=== PATIENT | male | born 1975 | race African-American/Black ===

== ENCOUNTER 2021-08-19 14:35 | Inpatient (IN) | payer BC ==
[2021-08-19 17:25] VITALS: BMI 27.5
[2021-08-19] MEDS ORDERED: guaiFENesin 200 MG/10 ML 10 ML UNIT-DOSE CUPS PO PRN (17:36)
[2021-08-19] MEDS ORDERED: P-EPHED 60MG/TRIPROLIDI 2.5MG TABLET PO PRN (17:36)
[2021-08-19] MEDS ORDERED: MAGNESIUM HYDROX 2400MG/30ML ORAL SUSPENSION 30 ML CUP PO PRN (17:36)
[2021-08-19] MEDS ORDERED: MAGNESIUM CITRATE 300 ML BOTTLE PO PRN (17:36)
[2021-08-19] MEDS ORDERED: MAG HYDROX/AL HYDROX/SIMETH 30 ML UNIT-DOSE CUP PO PRN (17:36)
[2021-08-19] MEDS ORDERED: IBUPROFEN 400 MG TABLET (FP) PO PRN (17:36)
[2021-08-19] MEDS ORDERED: LOPERAMIDE HCL 2 MG CAPSULE PO PRN (17:36)
[2021-08-19] MEDS ORDERED: ACETAMINOPHEN 325 MG TABLET (FP) PO PRN (17:36)
[2021-08-19] MEDS ORDERED: ALBUTEROL SO4 HFA INHALER IH PRN (20:12)
[2021-08-19] MEDS: hydrOXYzine PAMOATE 25 MG CAPSULE (FP) PO SCH ×2 (21:37→21:39)
[2021-08-19] MEDS: THIAMINE HCL 100 MG TABLET (FP) PO SCH (21:39)
[2021-08-19] MEDS: MELATONIN 5 MG TABLETS PO SCH (21:39)
[2021-08-20] MEDS: hydrOXYzine PAMOATE 25 MG CAPSULE (FP) PO SCH ×5 (06:43→21:15)
[2021-08-20] MEDS: PRENATAL VITAMINS W/ FOLIC ACID TABLET (FP) PO SCH (11:27)
[2021-08-20] MEDS: NICOTINE 7 MG/24 HOURS TOPICAL PATCH TD SCH (11:27)
[2021-08-20] MEDS: NICOTINE 10 MG CARTRIDGE (INHALER) IH PRN (11:28)
[2021-08-20] MEDS ORDERED: methaDONE HCL 40 MG DISPERSABLE TABLET PO SCH (12:30)
[2021-08-20] MEDS ORDERED: methaDONE HCL 40 MG DISPERSABLE TABLET ONE (12:42)
[2021-08-20] MEDS ORDERED: methaDONE HCL 10 MG TABLET ONE (12:43)
[2021-08-20] MEDS: methaDONE 40 MG, methaDONE 20 MG PO SCH (12:46)
[2021-08-20 13:44] LABS: HEMATOCRIT 39.3 % (35.4-49); HEMOGLOBIN 12.4 GM/dL (11.7-16.9); MCH 26.1 pg (25.7-33.7); MCHC 31.5 g/dl (32.0-35.9); MEAN CELL VOLUME 82.9 fl (80-96); PLATELET COUNT 319 10^3/uL (134-434); RBC 4.74 M/mm3 (4.00-5.60); RDW 12.9 % (11.9-15.9); WHITE BLOOD COUNT 3.6 K/mm3 (4.0-10.0)
[2021-08-20 13:59] LABS: CALCIUM 8.5 mg/dL (8.5-10.1)
[2021-08-20 14:00] LABS: ALBUMIN 3.2 g/dl (3.4-5.0); BLOOD UREA NITROGEN 13.7 mg/dL (7-18)
[2021-08-20 14:02] LABS: CREATININE 1.2 mg/dL (0.55-1.3)
[2021-08-20 14:04] LABS: BILIRUBIN,TOTAL 0.5 mg/dL (0.2-1); TOT PROT 6.4 g/dl (6.4-8.2)
[2021-08-20 14:36] LABS: HIV INTERPRETATION NEGATIVE (NEGATIVE)
[2021-08-20 19:57] LABS: PH,URINE 6.5 (5.0-8.0); URINE APPEARANCE CLEAR; URINE BILIRUBIN NEGATIVE (NEGATIVE); URINE COLOR YELLOW; URINE GLUCOSE (UA) NEGATIVE (NEGATIVE); URINE KETONE NEGATIVE (NEGATIVE); URINE LEUK ESTERASE NEGATIVE (NEGATIVE); URINE NITRITE NEGATIVE (NEGATIVE); URINE PROTEIN NEGATIVE (NEGATIVE)
[2021-08-20] MEDS: MELATONIN 5 MG TABLETS PO SCH (21:15)
[2021-08-20] MEDS: THIAMINE HCL 100 MG TABLET (FP) PO SCH (21:15)
[2021-08-20] MEDS: QUEtiapine FUMARATE 50 MG TABLET PO SCH (21:15)
[2021-08-20] MEDS ORDERED: QUEtiapine FUMARATE 50 MG TABLET PO SCH (22:00)
[2021-08-21] MEDS ORDERED: methaDONE HCL 40 MG DISPERSABLE TABLET ONE (02:50)
[2021-08-21] MEDS ORDERED: methaDONE HCL 10 MG TABLET ONE (02:51)
[2021-08-21] MEDS: methaDONE 40 MG, methaDONE 20 MG PO SCH (06:09)
[2021-08-21] MEDS: hydrOXYzine PAMOATE 25 MG CAPSULE (FP) PO SCH ×5 (06:10→21:15)
[2021-08-21] MEDS: SERTRALINE HCL 50 MG TABLET (FP) PO SCH (11:18)
[2021-08-21] MEDS: PRENATAL VITAMINS W/ FOLIC ACID TABLET (FP) PO SCH (11:19)
[2021-08-21] MEDS: NICOTINE 7 MG/24 HOURS TOPICAL PATCH TD SCH (11:19)
[2021-08-21] MEDS: THIAMINE HCL 100 MG TABLET (FP) PO SCH (21:14)
[2021-08-21] MEDS: MELATONIN 5 MG TABLETS PO SCH (21:14)
[2021-08-21] MEDS: QUEtiapine FUMARATE 50 MG TABLET PO SCH (21:15)
[2021-08-22] MEDS ORDERED: methaDONE HCL 40 MG DISPERSABLE TABLET ONE (04:17)
[2021-08-22] MEDS ORDERED: methaDONE HCL 10 MG TABLET ONE (04:18)
[2021-08-22] MEDS: methaDONE 40 MG, methaDONE 20 MG PO SCH (06:21)
[2021-08-22] MEDS: hydrOXYzine PAMOATE 25 MG CAPSULE (FP) PO SCH ×5 (06:22→21:16)
[2021-08-22] MEDS: NICOTINE 7 MG/24 HOURS TOPICAL PATCH TD SCH (09:46)
[2021-08-22] MEDS: PRENATAL VITAMINS W/ FOLIC ACID TABLET (FP) PO SCH (09:47)
[2021-08-22] MEDS: SERTRALINE HCL 50 MG TABLET (FP) PO SCH (09:47)
[2021-08-22] MEDS: DOCUSATE SODIUM 100 MG CAPSULE (FP) PO SCH ×2 (14:38→21:16)
[2021-08-22] MEDS: QUEtiapine FUMARATE 50 MG TABLET PO SCH (21:16)
[2021-08-22] MEDS: MELATONIN 5 MG TABLETS PO SCH (21:16)
[2021-08-22] MEDS: THIAMINE HCL 100 MG TABLET (FP) PO SCH (21:16)
[2021-08-23] MEDS ORDERED: methaDONE HCL 40 MG DISPERSABLE TABLET ONE (03:19)
[2021-08-23] MEDS ORDERED: methaDONE HCL 10 MG TABLET ONE (03:19)
[2021-08-23] MEDS: DOCUSATE SODIUM 100 MG CAPSULE (FP) PO SCH ×3 (06:08→21:03)
[2021-08-23] MEDS: hydrOXYzine PAMOATE 25 MG CAPSULE (FP) PO SCH ×5 (06:08→21:03)
[2021-08-23] MEDS: methaDONE 40 MG, methaDONE 20 MG PO SCH (06:08)
[2021-08-23] MEDS: NICOTINE 7 MG/24 HOURS TOPICAL PATCH TD SCH (09:57)
[2021-08-23] MEDS: SERTRALINE HCL 50 MG TABLET (FP) PO SCH (09:57)
[2021-08-23] MEDS: PRENATAL VITAMINS W/ FOLIC ACID TABLET (FP) PO SCH (09:57)
[2021-08-23] MEDS: QUEtiapine FUMARATE 50 MG TABLET PO SCH (21:03)
[2021-08-23] MEDS: MELATONIN 5 MG TABLETS PO SCH (21:03)
[2021-08-23] MEDS: THIAMINE HCL 100 MG TABLET (FP) PO SCH (21:03)
[2021-08-24] MEDS ORDERED: methaDONE HCL 10 MG TABLET ONE (02:52)
[2021-08-24] MEDS ORDERED: methaDONE HCL 40 MG DISPERSABLE TABLET ONE (02:52)
[2021-08-24] MEDS: DOCUSATE SODIUM 100 MG CAPSULE (FP) PO SCH ×3 (06:11→21:11)
[2021-08-24] MEDS: methaDONE 40 MG, methaDONE 20 MG PO SCH (06:11)
[2021-08-24] MEDS: hydrOXYzine PAMOATE 25 MG CAPSULE (FP) PO SCH ×5 (06:11→21:11)
[2021-08-24] MEDS: SERTRALINE HCL 50 MG TABLET (FP) PO SCH (09:17)
[2021-08-24] MEDS: PRENATAL VITAMINS W/ FOLIC ACID TABLET (FP) PO SCH (09:17)
[2021-08-24] MEDS: NICOTINE 7 MG/24 HOURS TOPICAL PATCH TD SCH (09:17)
[2021-08-24] MEDS: THIAMINE HCL 100 MG TABLET (FP) PO SCH (21:11)
[2021-08-24] MEDS: MELATONIN 5 MG TABLETS PO SCH (21:11)
[2021-08-24] MEDS: QUEtiapine FUMARATE 50 MG TABLET PO SCH (21:11)
[2021-08-25] MEDS ORDERED: methaDONE HCL 10 MG TABLET ONE (02:16)
[2021-08-25] MEDS ORDERED: methaDONE HCL 40 MG DISPERSABLE TABLET ONE (02:16)
[2021-08-25] MEDS: methaDONE 40 MG, methaDONE 20 MG PO SCH (06:24)
[2021-08-25] MEDS: DOCUSATE SODIUM 100 MG CAPSULE (FP) PO SCH ×3 (06:24→21:18)
[2021-08-25] MEDS: hydrOXYzine PAMOATE 25 MG CAPSULE (FP) PO SCH ×3 (06:24→14:15)
[2021-08-25] MEDS: PRENATAL VITAMINS W/ FOLIC ACID TABLET (FP) PO SCH (10:22)
[2021-08-25] MEDS: NICOTINE 7 MG/24 HOURS TOPICAL PATCH TD SCH (10:23)
[2021-08-25] MEDS: NICOTINE 10 MG CARTRIDGE (INHALER) IH PRN (10:23)
[2021-08-25] MEDS: SERTRALINE HCL 50 MG TABLET (FP) PO SCH (10:24)
[2021-08-25] MEDS: QUEtiapine FUMARATE 50 MG TABLET PO SCH (21:18)
[2021-08-25] MEDS: THIAMINE HCL 100 MG TABLET (FP) PO SCH (21:18)
[2021-08-25] MEDS: hydrOXYzine PAMOATE 25 MG CAPSULE (FP) PO PRN (21:19)
[2021-08-25] MEDS: MELATONIN 5 MG TABLETS PO SCH (21:19)
[2021-08-26] MEDS ORDERED: methaDONE HCL 10 MG TABLET ONE (04:21)
[2021-08-26] MEDS ORDERED: methaDONE HCL 40 MG DISPERSABLE TABLET ONE (04:22)
[2021-08-26] MEDS: methaDONE 40 MG, methaDONE 20 MG PO SCH (06:00)
[2021-08-26] MEDS: DOCUSATE SODIUM 100 MG CAPSULE (FP) PO SCH ×3 (06:00→21:03)
[2021-08-26] MEDS: NICOTINE 7 MG/24 HOURS TOPICAL PATCH TD SCH (10:12)
[2021-08-26] MEDS: NICOTINE 10 MG CARTRIDGE (INHALER) IH PRN (10:12)
[2021-08-26] MEDS: PRENATAL VITAMINS W/ FOLIC ACID TABLET (FP) PO SCH (10:12)
[2021-08-26] MEDS: SERTRALINE HCL 50 MG TABLET (FP) PO SCH (10:13)
[2021-08-26] MEDS: QUEtiapine FUMARATE 50 MG TABLET PO SCH (21:03)
[2021-08-26] MEDS: hydrOXYzine PAMOATE 25 MG CAPSULE (FP) PO PRN (21:03)
[2021-08-26] MEDS: MELATONIN 5 MG TABLETS PO SCH (21:03)
[2021-08-26] MEDS: THIAMINE HCL 100 MG TABLET (FP) PO SCH (21:03)
[2021-08-27] MEDS ORDERED: methaDONE HCL 40 MG DISPERSABLE TABLET ONE (03:45)
[2021-08-27] MEDS ORDERED: methaDONE HCL 10 MG TABLET ONE (03:45)
[2021-08-27] MEDS: methaDONE 40 MG, methaDONE 20 MG PO SCH (06:43)
[2021-08-27] MEDS: hydrOXYzine PAMOATE 25 MG CAPSULE (FP) PO PRN (06:44)
[2021-08-27] MEDS: DOCUSATE SODIUM 100 MG CAPSULE (FP) PO SCH ×3 (06:44→21:05)
[2021-08-27] MEDS: SERTRALINE HCL 50 MG TABLET (FP) PO SCH (10:06)
[2021-08-27] MEDS: NICOTINE 7 MG/24 HOURS TOPICAL PATCH TD SCH (10:07)
[2021-08-27] MEDS: PRENATAL VITAMINS W/ FOLIC ACID TABLET (FP) PO SCH (10:07)
[2021-08-27] MEDS: MELATONIN 5 MG TABLETS PO SCH (21:05)
[2021-08-27] MEDS: THIAMINE HCL 100 MG TABLET (FP) PO SCH (21:05)
[2021-08-27] MEDS: QUEtiapine FUMARATE 50 MG TABLET PO SCH (21:05)
[2021-08-28] MEDS ORDERED: methaDONE HCL 40 MG DISPERSABLE TABLET PO SCH (06:15)
[2021-08-28] MEDS ORDERED: methaDONE HCL 40 MG DISPERSABLE TABLET ONE (07:01)
[2021-08-28] MEDS ORDERED: methaDONE HCL 10 MG TABLET ONE (07:01)
[2021-08-28] MEDS: hydrOXYzine PAMOATE 25 MG CAPSULE (FP) PO PRN ×2 (07:01→21:15)
[2021-08-28] MEDS: DOCUSATE SODIUM 100 MG CAPSULE (FP) PO SCH ×3 (07:02→21:15)
[2021-08-28] MEDS: methaDONE 40 MG, methaDONE 20 MG PO SCH (07:02)
[2021-08-28] MEDS: SERTRALINE HCL 50 MG TABLET (FP) PO SCH (09:34)
[2021-08-28] MEDS: NICOTINE 7 MG/24 HOURS TOPICAL PATCH TD SCH (09:34)
[2021-08-28] MEDS: PRENATAL VITAMINS W/ FOLIC ACID TABLET (FP) PO SCH (09:34)
[2021-08-28] MEDS: THIAMINE HCL 100 MG TABLET (FP) PO SCH (21:15)
[2021-08-28] MEDS: MELATONIN 5 MG TABLETS PO SCH (21:15)
[2021-08-28] MEDS: QUEtiapine FUMARATE 50 MG TABLET PO SCH (21:15)
[2021-08-29] MEDS ORDERED: methaDONE HCL 10 MG TABLET ONE (03:36)
[2021-08-29] MEDS ORDERED: methaDONE HCL 40 MG DISPERSABLE TABLET ONE (03:36)
[2021-08-29] MEDS: DOCUSATE SODIUM 100 MG CAPSULE (FP) PO SCH ×3 (06:42→21:19)
[2021-08-29] MEDS: methaDONE 40 MG, methaDONE 20 MG PO SCH (06:42)
[2021-08-29] MEDS: SERTRALINE HCL 50 MG TABLET (FP) PO SCH (09:38)
[2021-08-29] MEDS: NICOTINE 7 MG/24 HOURS TOPICAL PATCH TD SCH (09:38)
[2021-08-29] MEDS: PRENATAL VITAMINS W/ FOLIC ACID TABLET (FP) PO SCH (09:38)
[2021-08-29] MEDS: THIAMINE HCL 100 MG TABLET (FP) PO SCH (21:19)
[2021-08-29] MEDS: hydrOXYzine PAMOATE 25 MG CAPSULE (FP) PO PRN (21:19)
[2021-08-29] MEDS: QUEtiapine FUMARATE 50 MG TABLET PO SCH (21:19)
[2021-08-29] MEDS: MELATONIN 5 MG TABLETS PO SCH (21:19)
[2021-08-30] MEDS ORDERED: methaDONE HCL 10 MG TABLET ONE (06:48)
[2021-08-30] MEDS ORDERED: methaDONE HCL 40 MG DISPERSABLE TABLET ONE (06:48)
[2021-08-30] MEDS: DOCUSATE SODIUM 100 MG CAPSULE (FP) PO SCH ×3 (06:48→21:05)
[2021-08-30] MEDS: methaDONE 40 MG, methaDONE 20 MG PO SCH (06:48)
[2021-08-30] MEDS: NICOTINE 7 MG/24 HOURS TOPICAL PATCH TD SCH (09:53)
[2021-08-30] MEDS: PRENATAL VITAMINS W/ FOLIC ACID TABLET (FP) PO SCH (09:53)
[2021-08-30] MEDS: SERTRALINE HCL 50 MG TABLET (FP) PO SCH (09:54)
[2021-08-30] MEDS: MELATONIN 5 MG TABLETS PO SCH (21:05)
[2021-08-30] MEDS: hydrOXYzine PAMOATE 25 MG CAPSULE (FP) PO PRN (21:05)
[2021-08-30] MEDS: THIAMINE HCL 100 MG TABLET (FP) PO SCH (21:05)
[2021-08-30] MEDS: QUEtiapine FUMARATE 50 MG TABLET PO SCH (21:05)
[2021-08-31] MEDS ORDERED: methaDONE HCL 10 MG TABLET ONE (02:54)
[2021-08-31] MEDS ORDERED: methaDONE HCL 40 MG DISPERSABLE TABLET ONE (02:54)
[2021-08-31] MEDS: DOCUSATE SODIUM 100 MG CAPSULE (FP) PO SCH ×3 (06:55→21:07)
[2021-08-31] MEDS: methaDONE 40 MG, methaDONE 20 MG PO SCH (06:55)
[2021-08-31] MEDS: SERTRALINE HCL 50 MG TABLET (FP) PO SCH (09:55)
[2021-08-31] MEDS: PRENATAL VITAMINS W/ FOLIC ACID TABLET (FP) PO SCH (09:55)
[2021-08-31] MEDS: NICOTINE 7 MG/24 HOURS TOPICAL PATCH TD SCH (09:56)
[2021-08-31] MEDS: QUEtiapine FUMARATE 50 MG TABLET PO SCH (21:07)
[2021-08-31] MEDS: MELATONIN 5 MG TABLETS PO SCH (21:07)
[2021-08-31] MEDS: THIAMINE HCL 100 MG TABLET (FP) PO SCH (21:07)
[2021-09-01] MEDS ORDERED: methaDONE HCL 10 MG TABLET ONE (03:08)
[2021-09-01] MEDS ORDERED: methaDONE HCL 40 MG DISPERSABLE TABLET ONE (03:08)
[2021-09-01] MEDS: DOCUSATE SODIUM 100 MG CAPSULE (FP) PO SCH ×3 (06:53→21:07)
[2021-09-01] MEDS: methaDONE 40 MG, methaDONE 20 MG PO SCH (06:53)
[2021-09-01] MEDS: SERTRALINE HCL 50 MG TABLET (FP) PO SCH (10:01)
[2021-09-01] MEDS: PRENATAL VITAMINS W/ FOLIC ACID TABLET (FP) PO SCH (10:01)
[2021-09-01] MEDS: NICOTINE 7 MG/24 HOURS TOPICAL PATCH TD SCH (10:02)
[2021-09-01] MEDS: QUEtiapine FUMARATE 50 MG TABLET PO SCH (21:07)
[2021-09-01] MEDS: THIAMINE HCL 100 MG TABLET (FP) PO SCH (21:07)
[2021-09-01] MEDS: MELATONIN 5 MG TABLETS PO SCH (21:07)
[2021-09-02] MEDS ORDERED: methaDONE HCL 10 MG TABLET ONE (03:45)
[2021-09-02] MEDS ORDERED: methaDONE HCL 40 MG DISPERSABLE TABLET ONE (03:46)
[2021-09-02] MEDS: DOCUSATE SODIUM 100 MG CAPSULE (FP) PO SCH ×3 (06:46→21:10)
[2021-09-02] MEDS: methaDONE 40 MG, methaDONE 20 MG PO SCH (06:46)
[2021-09-02] MEDS: PRENATAL VITAMINS W/ FOLIC ACID TABLET (FP) PO SCH (09:51)
[2021-09-02] MEDS: SERTRALINE HCL 50 MG TABLET (FP) PO SCH (09:51)
[2021-09-02] MEDS: NICOTINE 7 MG/24 HOURS TOPICAL PATCH TD SCH (09:51)
[2021-09-02] MEDS: THIAMINE HCL 100 MG TABLET (FP) PO SCH (21:10)
[2021-09-02] MEDS: MELATONIN 5 MG TABLETS PO SCH (21:10)
[2021-09-02] MEDS: QUEtiapine FUMARATE 50 MG TABLET PO SCH (21:10)
[2021-09-03] MEDS ORDERED: methaDONE HCL 10 MG TABLET ONE (03:04)
[2021-09-03] MEDS ORDERED: methaDONE HCL 40 MG DISPERSABLE TABLET ONE (03:04)
[2021-09-03] MEDS: DOCUSATE SODIUM 100 MG CAPSULE (FP) PO SCH ×3 (06:51→21:06)
[2021-09-03] MEDS: methaDONE 40 MG, methaDONE 20 MG PO SCH (06:51)
[2021-09-03] MEDS: PRENATAL VITAMINS W/ FOLIC ACID TABLET (FP) PO SCH (09:52)
[2021-09-03] MEDS: SERTRALINE HCL 50 MG TABLET (FP) PO SCH (09:52)
[2021-09-03] MEDS: NICOTINE 7 MG/24 HOURS TOPICAL PATCH TD SCH (09:52)
[2021-09-03] MEDS: THIAMINE HCL 100 MG TABLET (FP) PO SCH (21:05)
[2021-09-03] MEDS: QUEtiapine FUMARATE 50 MG TABLET PO SCH (21:06)
[2021-09-03] MEDS: MELATONIN 5 MG TABLETS PO SCH (21:06)
[2021-09-04] MEDS ORDERED: methaDONE HCL 40 MG DISPERSABLE TABLET ONE (03:03)
[2021-09-04] MEDS ORDERED: methaDONE HCL 10 MG TABLET ONE (03:03)
[2021-09-04] MEDS: methaDONE 40 MG, methaDONE 20 MG PO SCH (07:27)
[2021-09-04] MEDS: DOCUSATE SODIUM 100 MG CAPSULE (FP) PO SCH ×3 (07:27→21:12)
[2021-09-04] MEDS: SERTRALINE HCL 50 MG TABLET (FP) PO SCH (09:43)
[2021-09-04] MEDS: PRENATAL VITAMINS W/ FOLIC ACID TABLET (FP) PO SCH (09:43)
[2021-09-04] MEDS: NICOTINE 7 MG/24 HOURS TOPICAL PATCH TD SCH (09:44)
[2021-09-04] MEDS: MELATONIN 5 MG TABLETS PO SCH (21:12)
[2021-09-04] MEDS: QUEtiapine FUMARATE 50 MG TABLET PO SCH (21:12)
[2021-09-04] MEDS: THIAMINE HCL 100 MG TABLET (FP) PO SCH (21:12)
[2021-09-05] MEDS ORDERED: methaDONE HCL 10 MG TABLET ONE (03:04)
[2021-09-05] MEDS ORDERED: methaDONE HCL 40 MG DISPERSABLE TABLET ONE (03:04)
[2021-09-05] MEDS: methaDONE 40 MG, methaDONE 20 MG PO SCH (06:37)
[2021-09-05] MEDS: DOCUSATE SODIUM 100 MG CAPSULE (FP) PO SCH ×3 (06:37→21:20)
[2021-09-05] MEDS: NICOTINE 7 MG/24 HOURS TOPICAL PATCH TD SCH (09:24)
[2021-09-05] MEDS: PRENATAL VITAMINS W/ FOLIC ACID TABLET (FP) PO SCH (09:24)
[2021-09-05] MEDS: SERTRALINE HCL 50 MG TABLET (FP) PO SCH (09:24)
[2021-09-05] MEDS: MELATONIN 5 MG TABLETS PO SCH (21:20)
[2021-09-05] MEDS: THIAMINE HCL 100 MG TABLET (FP) PO SCH (21:20)
[2021-09-05] MEDS: QUEtiapine FUMARATE 50 MG TABLET PO SCH (21:20)
[2021-09-06] MEDS ORDERED: methaDONE HCL 10 MG TABLET ONE (05:26)
[2021-09-06] MEDS ORDERED: methaDONE HCL 40 MG DISPERSABLE TABLET ONE (05:27)
[2021-09-06] MEDS: DOCUSATE SODIUM 100 MG CAPSULE (FP) PO SCH ×3 (07:29→21:17)
[2021-09-06] MEDS: methaDONE 40 MG, methaDONE 20 MG PO SCH (07:29)
[2021-09-06] MEDS: SERTRALINE HCL 50 MG TABLET (FP) PO SCH (09:48)
[2021-09-06] MEDS: PRENATAL VITAMINS W/ FOLIC ACID TABLET (FP) PO SCH (09:48)
[2021-09-06] MEDS: NICOTINE 7 MG/24 HOURS TOPICAL PATCH TD SCH (09:48)
[2021-09-06] MEDS: THIAMINE HCL 100 MG TABLET (FP) PO SCH (21:17)
[2021-09-06] MEDS: QUEtiapine FUMARATE 50 MG TABLET PO SCH (21:17)
[2021-09-06] MEDS: MELATONIN 5 MG TABLETS PO SCH (21:17)
[2021-09-07] MEDS ORDERED: methaDONE HCL 10 MG TABLET ONE (06:54)
[2021-09-07] MEDS ORDERED: methaDONE HCL 40 MG DISPERSABLE TABLET ONE (06:55)
[2021-09-07] MEDS: methaDONE 40 MG, methaDONE 20 MG PO SCH (06:55)
[2021-09-07] MEDS: DOCUSATE SODIUM 100 MG CAPSULE (FP) PO SCH ×3 (06:55→21:12)
[2021-09-07] MEDS: PRENATAL VITAMINS W/ FOLIC ACID TABLET (FP) PO SCH (09:46)
[2021-09-07] MEDS: NICOTINE 7 MG/24 HOURS TOPICAL PATCH TD SCH (09:46)
[2021-09-07] MEDS: SERTRALINE HCL 50 MG TABLET (FP) PO SCH (09:47)
[2021-09-07] MEDS: QUEtiapine FUMARATE 50 MG TABLET PO SCH (21:12)
[2021-09-07] MEDS: MELATONIN 5 MG TABLETS PO SCH (21:12)
[2021-09-07] MEDS: THIAMINE HCL 100 MG TABLET (FP) PO SCH (21:12)
[2021-09-08] MEDS ORDERED: methaDONE HCL 40 MG DISPERSABLE TABLET ONE (02:52)
[2021-09-08] MEDS ORDERED: methaDONE HCL 10 MG TABLET ONE (02:52)
[2021-09-08] MEDS: methaDONE 40 MG, methaDONE 20 MG PO SCH (06:45)
[2021-09-08] MEDS: DOCUSATE SODIUM 100 MG CAPSULE (FP) PO SCH ×3 (06:45→21:13)
[2021-09-08] MEDS: PRENATAL VITAMINS W/ FOLIC ACID TABLET (FP) PO SCH (10:22)
[2021-09-08] MEDS: NICOTINE 7 MG/24 HOURS TOPICAL PATCH TD SCH (10:22)
[2021-09-08] MEDS: SERTRALINE HCL 50 MG TABLET (FP) PO SCH (10:23)
[2021-09-08] MEDS: QUEtiapine FUMARATE 50 MG TABLET PO SCH (21:13)
[2021-09-08] MEDS: THIAMINE HCL 100 MG TABLET (FP) PO SCH (21:13)
[2021-09-08] MEDS: MELATONIN 5 MG TABLETS PO SCH (21:14)
[2021-09-09] MEDS ORDERED: methaDONE HCL 40 MG DISPERSABLE TABLET ONE (05:43)
[2021-09-09] MEDS ORDERED: methaDONE HCL 10 MG TABLET ONE (05:43)
[2021-09-09] MEDS: methaDONE 40 MG, methaDONE 20 MG PO SCH (06:56)
[2021-09-09] MEDS: DOCUSATE SODIUM 100 MG CAPSULE (FP) PO SCH ×3 (06:56→21:51)
[2021-09-09] MEDS: SERTRALINE HCL 50 MG TABLET (FP) PO SCH (09:51)
[2021-09-09] MEDS: PRENATAL VITAMINS W/ FOLIC ACID TABLET (FP) PO SCH (09:51)
[2021-09-09] MEDS: NICOTINE 7 MG/24 HOURS TOPICAL PATCH TD SCH (09:51)
[2021-09-09] MEDS: QUEtiapine FUMARATE 50 MG TABLET PO SCH (21:51)
[2021-09-09] MEDS: MELATONIN 5 MG TABLETS PO SCH (21:51)
[2021-09-09] MEDS: THIAMINE HCL 100 MG TABLET (FP) PO SCH (21:51)
[2021-09-10] MEDS ORDERED: methaDONE HCL 40 MG DISPERSABLE TABLET ONE (03:29)
[2021-09-10] MEDS ORDERED: methaDONE HCL 10 MG TABLET ONE (03:29)
[2021-09-10] MEDS: DOCUSATE SODIUM 100 MG CAPSULE (FP) PO SCH ×3 (06:44→22:11)
[2021-09-10] MEDS: methaDONE 40 MG, methaDONE 20 MG PO SCH (06:44)
[2021-09-10] MEDS: PRENATAL VITAMINS W/ FOLIC ACID TABLET (FP) PO SCH (10:15)
[2021-09-10] MEDS: SERTRALINE HCL 50 MG TABLET (FP) PO SCH (10:15)
[2021-09-10] MEDS: NICOTINE 7 MG/24 HOURS TOPICAL PATCH TD SCH (10:16)
[2021-09-10] MEDS: THIAMINE HCL 100 MG TABLET (FP) PO SCH (22:11)
[2021-09-10] MEDS: QUEtiapine FUMARATE 50 MG TABLET PO SCH (22:11)
[2021-09-10] MEDS: MELATONIN 5 MG TABLETS PO SCH (22:34)
[2021-09-11] MEDS ORDERED: methaDONE HCL 10 MG TABLET ONE (04:35)
[2021-09-11] MEDS ORDERED: methaDONE HCL 40 MG DISPERSABLE TABLET ONE (04:35)
[2021-09-11] MEDS: DOCUSATE SODIUM 100 MG CAPSULE (FP) PO SCH ×3 (06:36→21:15)
[2021-09-11] MEDS: methaDONE 40 MG, methaDONE 20 MG PO SCH (06:36)
[2021-09-11] MEDS: SERTRALINE HCL 50 MG TABLET (FP) PO SCH (10:01)
[2021-09-11] MEDS: NICOTINE 7 MG/24 HOURS TOPICAL PATCH TD SCH (10:01)
[2021-09-11] MEDS: PRENATAL VITAMINS W/ FOLIC ACID TABLET (FP) PO SCH (10:01)
[2021-09-11] MEDS: MELATONIN 5 MG TABLETS PO SCH (21:16)
[2021-09-11] MEDS: THIAMINE HCL 100 MG TABLET (FP) PO SCH (21:16)
[2021-09-11] MEDS: QUEtiapine FUMARATE 50 MG TABLET PO SCH (21:16)
[2021-09-12] MEDS ORDERED: methaDONE HCL 10 MG TABLET ONE (02:52)
[2021-09-12] MEDS ORDERED: methaDONE HCL 40 MG DISPERSABLE TABLET ONE (02:53)
[2021-09-12] MEDS: methaDONE 40 MG, methaDONE 20 MG PO SCH (06:52)
[2021-09-12] MEDS: DOCUSATE SODIUM 100 MG CAPSULE (FP) PO SCH ×3 (06:53→21:11)
[2021-09-12] MEDS: SERTRALINE HCL 50 MG TABLET (FP) PO SCH (09:48)
[2021-09-12] MEDS: PRENATAL VITAMINS W/ FOLIC ACID TABLET (FP) PO SCH (09:48)
[2021-09-12] MEDS: NICOTINE 7 MG/24 HOURS TOPICAL PATCH TD SCH (09:48)
[2021-09-12] MEDS: QUEtiapine FUMARATE 50 MG TABLET PO SCH (21:11)
[2021-09-12] MEDS: THIAMINE HCL 100 MG TABLET (FP) PO SCH (21:11)
[2021-09-12] MEDS: MELATONIN 5 MG TABLETS PO SCH (21:11)
[2021-09-13] MEDS ORDERED: methaDONE HCL 10 MG TABLET ONE (06:15)
[2021-09-13] MEDS ORDERED: methaDONE HCL 40 MG DISPERSABLE TABLET ONE (06:15)
[2021-09-13] MEDS: DOCUSATE SODIUM 100 MG CAPSULE (FP) PO SCH ×3 (06:43→21:15)
[2021-09-13] MEDS: methaDONE 40 MG, methaDONE 20 MG PO SCH (06:44)
[2021-09-13] MEDS: PRENATAL VITAMINS W/ FOLIC ACID TABLET (FP) PO SCH (09:36)
[2021-09-13] MEDS: SERTRALINE HCL 50 MG TABLET (FP) PO SCH (09:36)
[2021-09-13] MEDS: NICOTINE 7 MG/24 HOURS TOPICAL PATCH TD SCH (09:36)
[2021-09-13] MEDS: MELATONIN 5 MG TABLETS PO SCH (21:15)
[2021-09-13] MEDS: THIAMINE HCL 100 MG TABLET (FP) PO SCH (21:15)
[2021-09-13] MEDS: QUEtiapine FUMARATE 50 MG TABLET PO SCH (21:15)
[2021-09-14] MEDS ORDERED: methaDONE HCL 10 MG TABLET ONE (02:36)
[2021-09-14] MEDS ORDERED: methaDONE HCL 40 MG DISPERSABLE TABLET ONE (02:37)
[2021-09-14] MEDS: methaDONE 40 MG, methaDONE 20 MG PO SCH (06:47)
[2021-09-14] MEDS: DOCUSATE SODIUM 100 MG CAPSULE (FP) PO SCH ×3 (06:47→21:10)
[2021-09-14] MEDS: PRENATAL VITAMINS W/ FOLIC ACID TABLET (FP) PO SCH (09:41)
[2021-09-14] MEDS: NICOTINE 7 MG/24 HOURS TOPICAL PATCH TD SCH (09:41)
[2021-09-14] MEDS: SERTRALINE HCL 50 MG TABLET (FP) PO SCH (09:42)
[2021-09-14] MEDS: MELATONIN 5 MG TABLETS PO SCH (21:10)
[2021-09-14] MEDS: THIAMINE HCL 100 MG TABLET (FP) PO SCH (21:10)
[2021-09-14] MEDS: QUEtiapine FUMARATE 50 MG TABLET PO SCH (21:10)
[2021-09-15] MEDS ORDERED: methaDONE HCL 40 MG DISPERSABLE TABLET ONE (02:58)
[2021-09-15] MEDS ORDERED: methaDONE HCL 10 MG TABLET ONE (02:58)
[2021-09-15] MEDS: methaDONE 40 MG, methaDONE 20 MG PO SCH (06:03)
[2021-09-15] MEDS: DOCUSATE SODIUM 100 MG CAPSULE (FP) PO SCH ×3 (06:03→21:13)
[2021-09-15] MEDS: NICOTINE 7 MG/24 HOURS TOPICAL PATCH TD SCH (09:47)
[2021-09-15] MEDS: SERTRALINE HCL 50 MG TABLET (FP) PO SCH (09:47)
[2021-09-15] MEDS: PRENATAL VITAMINS W/ FOLIC ACID TABLET (FP) PO SCH (09:47)
[2021-09-15] MEDS: QUEtiapine FUMARATE 50 MG TABLET PO SCH (21:13)
[2021-09-15] MEDS: MELATONIN 5 MG TABLETS PO SCH (21:13)
[2021-09-15] MEDS: THIAMINE HCL 100 MG TABLET (FP) PO SCH (21:13)
[2021-09-16] MEDS ORDERED: methaDONE HCL 10 MG TABLET ONE (05:08)
[2021-09-16] MEDS ORDERED: methaDONE HCL 40 MG DISPERSABLE TABLET ONE (05:08)
[2021-09-16] MEDS: DOCUSATE SODIUM 100 MG CAPSULE (FP) PO SCH (06:17)
[2021-09-16] MEDS: methaDONE 40 MG, methaDONE 20 MG PO SCH (06:17)
[2021-09-16 07:07] VITALS: BP 140/86; PULSE 82; TEMP 97.8
== END 2021-09-16 10:00 | disposition home or self-care (01) | DRG 772 ==
LOC: YASAS 14:35 → Y3W 19:28 → Y5N 08-24 10:58
PROVIDERS: ADMIT Allergy & Immunology; ATTEND Allergy & Immunology
PROC: HZ42ZZZ Group Counseling for Substance Abuse Treatment, Cognitive-Behavioral (ICD-10-PCS; principal; 2021-08-19)
DX: F11.20 Opioid dependence, uncomplicated (principal); F10.20 Alcohol dependence, uncomplicated; F14.20 Cocaine dependence, uncomplicated; F12.20 Cannabis dependence, uncomplicated; F17.210 Nicotine dependence, cigarettes, uncomplicated; F31.81 Bipolar II disorder; G47.00 Insomnia, unspecified; J45.909 Unspecified asthma, uncomplicated; Z56.0 Unemployment, unspecified
CPT/HCPCS: 36415; 80053; 81003; 85027; 86780; 86803; 87389; 87811; C9803; U0003; U0005